=== PATIENT | female | born 1960 | race Caucasian/White ===

== ENCOUNTER → 2017-10-12 | Outpatient (CLI) | payer BC | LOC: LAB.O 14:30 | PROVIDERS: ATTEND Nurse Practitioner Family | DX: I10 Essential (primary) hypertension (principal) ==

== ENCOUNTER 2020-10-12 05:40 | Day surgery (SDC) | payer BC, OTHER ==
[2020-10-12] MEDS ORDERED: MOXIFLOXACIN HCL (OPHTH) 1 DROP DROPS ONE (08:35)
[2020-10-12] MEDS ORDERED: TROP1%/CYCLOPEN 1%/PHENYL 2.5% DROPS ONE (08:35)
[2020-10-12] MEDS ORDERED: PROPARACAINE 0.5% OPHTH SOL 15 ML BTTL ONE (08:35)
[2020-10-12] MEDS ORDERED: MIDAZOLAM INJ 2 MG/2 ML VIAL ONE ×2 (09:19→09:38)
[2020-10-12] MEDS ORDERED: PROPARACAINE 0.5% OPHTH SOL 15 ML BTTL LEFT_EYE ONE (09:20)
[2020-10-12] MEDS ORDERED: LIDOCAINE 1% MPF 2 ML VIAL INJ ONE ×2 (09:30→09:41)
[2020-10-12] MEDS ORDERED: MOXIFLOXACIN HCL (OPHTH) 1 DROP DROPS LEFT_EYE ONE ×2 (09:30→10:00)
[2020-10-12] MEDS ORDERED: TOBRAMYCIN SULF 0.3 % OPHT SOL 1 DROP LEFT_EYE ONE ×2 (09:30→10:00)
[2020-10-12] MEDS ORDERED: DEXAMETHASONE 0.1% OPHTH SOL 1 DROP LEFT_EYE ONE ×2 (09:30→10:00)
[2020-10-12] MEDS ORDERED: BRIMONIDINE 0.2% OPHTH DROPS LEFT_EYE ONE ×2 (09:31→10:00)
== END 2020-10-12 10:40 | disposition home or self-care (01) ==
LOC: AMB 05:40
PROVIDERS: ATTEND Ophthalmology
DX: H25.12 Age-related nuclear cataract, left eye (principal); I10 Essential (primary) hypertension; Z79.899 Other long term (current) drug therapy
CPT/HCPCS: 00142; 66984; 66999; J2250; V2788

== ENCOUNTER 2020-10-26 05:04 | Day surgery (SDC) | payer BC, OTHER ==
[2020-10-26] MEDS ORDERED: TROP1%/CYCLOPEN 1%/PHENYL 2.5% DROPS OPHTH ONE (05:05)
[2020-10-26] MEDS ORDERED: MIDAZOLAM INJ 2 MG/2 ML VIAL ONE ×2 (08:10→08:56)
[2020-10-26] MEDS ORDERED: PROPARACAINE 0.5% OPHTH SOL 15 ML BTTL RIGHT_EYE ONE (08:51)
[2020-10-26] MEDS ORDERED: MOXIFLOXACIN HCL (OPHTH) 1 DROP DROPS RIGHT_EYE ONE ×2 (08:59→09:18)
[2020-10-26] MEDS ORDERED: LIDOCAINE 1% MPF 2 ML VIAL INJ ONE (08:59)
[2020-10-26] MEDS ORDERED: DEXAMETHASONE 0.1% OPHTH SOL 1 DROP RIGHT_EYE ONE ×2 (09:00→09:18)
[2020-10-26] MEDS ORDERED: TOBRAMYCIN SULF 0.3 % OPHT SOL 1 DROP RIGHT_EYE ONE ×2 (09:00→09:18)
[2020-10-26] MEDS ORDERED: BRIMONIDINE 0.2% OPHTH DROPS RIGHT_EYE ONE ×2 (09:00→09:18)
== END 2020-10-26 09:53 | disposition home or self-care (01) ==
LOC: AMB 05:04
PROVIDERS: ATTEND Ophthalmology
DX: H25.11 Age-related nuclear cataract, right eye (principal); H52.201 Unspecified astigmatism, right eye; I10 Essential (primary) hypertension; Z79.899 Other long term (current) drug therapy
CPT/HCPCS: 00142; 66984; J2250